=== PATIENT | female | born 1945 | race Hispanic/Latino ===

== ENCOUNTER 2016-11-01 08:29 | Day surgery (SDC) | payer BC ==
[2016-10-23 11:55] VITALS: BMI 30.4
[2016-11-01] MEDS ORDERED: Flumazenil 0.1 mg/ml Inj (5ml) IVP ONE (11:57)
[2016-11-01] MEDS ORDERED: Midazolam 2 MG/2 ML VIAL ONE (11:57)
[2016-11-01] MEDS ORDERED: Naloxone 0.4 mg/ml Inj (Adult) ONE (11:57)
--- NOTE | 2016-11-02 19:01 | CARD ---
APPROVED REPORT EXAM: Transesophageal echocardiogram with color flow Doppler. INDICATION Aortic Valve Disease 2D DIMENSIONS LVOT Diameter1.7 (1.8-2.4cm) M-Mode DIMENSIONS Aortic Cusp Exc.0.70 (1.5-2.0cm) Aortic Valve AoV Peak Rdlyllxk071.0cm/sAoV VTI67.9cmAO Peak GR.51mmHg LVOT Peak Fbhgvcbf58.4cm/sLVOT VTI16.80cmAO Mean GR.29mmHg MONICA (VMAX)0.17it5SFM (VTI)0.56cm2 Mitral Valve E/A ratio0.0 TDI E/Lateral E'0.0E/Medial E'0.0 Tricuspid Valve TR Peak Pmxucyix730lw/sRAP [id number] Peak Gr.48mmHg [id number] Reason For Test : To assess /MR/TR PROCEDURE After obtaining informed consent, patient underwent transesophageal echo in the Echo Lab. Type of Sedation : Conscious Sedation Sedation was administered by Dr. young. Sedation was achieved with Versed and , Fentanyl 2mg and 100 mcg intravenously. Transesophageal probe was inserted and advanced into esophagus without difficulty. Echo enhancement indication: R/O Septal defect. Echo enhancement agent administered: Agitated Saline The MIKAL was performed without complications. Throughout the procedure, the blood pressure, pulse oximetry, cardiac rhythm, and rate were monitored. The patient tolerated the procedure without adverse effects. Recovery from conscious sedation was uneventful and vital signs were stable. LEFT VENTRICLE The left ventricle is normal size. There is mild concentric left ventricular hypertrophy. The left ventricular function is normal.Ef-60-65% There is normal LV segmental wall motion. A fib No left ventricle thrombus noted on this study. There is no ventricular septal defect visualized. There is no left ventricular aneurysm. There is no mass noted in the left ventricle. RIGHT VENTRICLE The right ventricle is mildly to moderately dilated. There is normal right ventricular wall thickness. Systolic function is mildly to moderately reduced. ATRIA The left atrium is moderately dilated. The right atrium is moderately dilated. The interatrial septum is intact with no evidence for an atrial septal defect, by color flw and Bubble study AORTIC VALVE The aortic valve is calcified and displays decreased opening. There is mild to moderate aortic regurgitation. There is severe valvular aortic stenosis. MONICA 0.6 by continuty equation and 0.7 cm2 by planimetry. There is no aortic valvular vegetation. MITRAL VALVE Mitral annular calcification is mild to moderate. The mitral valve leaflets are thickened. There is no mitral valve stenosis. Mitral regurgitation is moderate to severe. TRICUSPID VALVE The tricuspid valve leaflets display thickening. There is moderate to severe tricuspid regurgitation.RVSP-58 mmof hg. There is no tricuspid valve prolapse or vegetation. PULMONIC VALVE The pulmonary valve is normal in structure. There is mild pulmonic valvular regurgitation. There is no pulmonic valvular stenosis. GREAT VESSELS The aortic root is normal in size. The ascending aorta is normal in size. The pulmonary artery is normal. The IVC is normal in size and collapses >50% with inspiration. PERICARDIAL EFFUSION There is no pericardial effusion. There is no pleural effusion. <Conclusion> The left ventricle is normal size. The left ventricular function is normal.Ef-60-65% There is mild to moderate aortic regurgitation. The aortic valve is calcified and displays decreased opening. There is severe valvular aortic stenosis. MONICA 0.6 by continuty equation and 0.7 cm2 by planimetry. Mitral regurgitation is moderate to severe. There is moderate to severe tricuspid regurgitation.RVSP-58 mmof Hg Mild to moderate flat plaque in descending aorta noted. velocity in AILYN less than 0.2 m/s. Recommendation: If symptomatic consider TAVR eval Left and right heart cath VS Close F/u and repeat echo in 6 months to one year if Asymptomatic. Cc; dr. Bose.
== END 2016-11-01 14:40 | disposition home or self-care (01) ==
LOC: TEE 08:29 → EDSTATUS 10:00 → TEE 14:40
PROVIDERS: ATTEND Internal Medicine Cardiovascular Disease
DX: I08.3 Combined rheumatic disorders of mitral, aortic and tricuspid valves (principal); I10 Essential (primary) hypertension; I25.10 Atherosclerotic heart disease of native coronary artery without angina pectoris; I50.9 Heart failure, unspecified; I49.9 Cardiac arrhythmia, unspecified; Z88.8 Allergy status to other drugs, medicaments and biological substances; Z88.0 Allergy status to penicillin
CPT/HCPCS: 93312; J2250; J3010

== ENCOUNTER 2017-01-24 13:42 | Emergency (ER) | payer BC ==
[2017-01-24 13:42] VITALS: BMI 31.9
[2017-01-24 14:10] VITALS: TEMP 97.4
[2017-01-24] MEDS ORDERED: Potassium Chloride 40 mEq/30 ml LIQ UD PO STA (14:46)
[2017-01-24] MEDS ORDERED: Ciprofloxacin 400mg/200ml D5W 400 MG/200 ML BAG IVPB STA (14:47)
[2017-01-24] MEDS ORDERED: Vancomycin 1gm in NS 250ml 1 GM/250 ML BAG IVPB STA (14:47)
--- NOTE | 2017-01-24 14:49 | ED PDOC ---
Arrival/HPI - General Chief Complaint: Lower Extremity Problem/Injury Time Seen by Provider: 01/24/17 14:11 Historian: Patient - History of Present Illness Narrative History of Present Illness (Text): 01/24/17 14:48 A 71 year old female presents to the emergency department with 2 week duration left lower extremity swelling and redness. She states that she was advised to come in by [facility] two days ago for the swelling. The patient denies fevers , chills, headache, dizziness, nausea, vomiting, diarrhea. on antibiotics, finished course started 2 weeks ago, not improving 01/24/17 17:11 Time/Duration: 1 week Symptom Onset: Sudden Symptom Course: Unchanged Activities at Onset: Rest, Light Context: Home Past Medical History - Provider Review Nursing Documentation Reviewed: Yes - Infectious Disease Hx of Infectious Diseases: None - Tetanus Immunization Tetanus Immunization: Unknown - Reproductive Menopause: Yes - Cardiac Hx Atrial Fibrillation: Yes Hx Hypertension: Yes Other/Comment: aortic stenosis - Pulmonary Hx Respiratory Disorders: No - Neurological Hx Paralysis: No - HEENT Hx HEENT Disorder: No (GLASSES) - Renal Hx Renal Disorder: No - Endocrine/Metabolic Hx Endocrine Disorders: No - Hematological/Oncological Hx Blood Transfusions: Yes (2013) Hx Blood Transfusion Reaction: No - Integumentary Hx Dermatological Disorder: No - Musculoskeletal/Rheumatological Hx Musculoskeletal Disorders: Yes (OSTEOARTHRITIS) - Gastrointestinal Hx Gastrointestinal Disorders: Yes Hx Gall Bladder Disease: Yes (CHOLECYSTECTOMY) - Genitourinary/Gynecological Hx Genitourinary Disorders: No - Psychiatric Hx Anxiety: Yes Hx Depression: No Hx Emotional Abuse: No Hx Physical Abuse: No Hx Substance Use: No - Past Surgical History Past Surgical History: Non-Contributing - Surgical History Other/Comment: abd hernia - Anesthesia Hx Anesthesia Reactions: No Hx Malignant Hyperthermia: No - Suicidal Assessment Feels Threatened In Home Enviroment: No Family/Social History - Physician Review Nursing Documentation Reviewed: Yes Family/Social History: No Known Family HX Smoking Status: Never Smoked Hx Alcohol Use: No Hx Substance Use: No Hx Substance Use Treatment: No Allergies/Home Meds Allergies/Adverse Reactions: Allergies gabapentin Allergy (Severe, Verified 01/24/17 14:10) RASH Penicillins Allergy (Severe, Verified 01/24/17 14:10) RASH Home Medications: Home Meds Medication Instructions Recorded Confirmed Alprazolam [Xanax] 0.25 mg PO BID PRN 10/21/13 01/24/17 Metoprolol Succinate 25 mg PO BID 04/22/14 01/24/17 Atorvastatin [Lipitor] 10 mg PO DIN 10/23/16 01/24/17 Docusate [Colace] 100 mg PO DAILY 10/23/16 01/24/17 Furosemide [Lasix] 40 mg PO DAILY 10/23/16 01/24/17 Omeprazole Magnesium [Prilosec Otc] 20 mg PO DAILY 10/23/16 01/24/17 Potassium Chloride [Klor-Con M20] 20 meq PO BID 10/23/16 01/24/17 diltiaZEM CD [Cardizem CD] 180 mg PO DAILY 10/23/16 01/24/17 Review of Systems - Physician Review All systems were reviewed & negative as marked: Yes - Review of Systems Constitutional: absent: Fevers, Night Sweats Respiratory: absent: SOB Cardiovascular: absent: Chest Pain Gastrointestinal: absent: Abdominal Pain, Diarrhea, Nausea Musculoskeletal: Other (Lower extremity swelling and erythema) Neurological: absent: Headache, Dizziness Physical Exam Vital Signs Reviewed: Yes Vital Signs Temp Pulse Resp BP Pulse Ox 01/24/17 15:42 75 17 150/80 98 01/24/17 14:06 97.4 F L 77 18 151/82 H 99 Temperature: Hypothermic Blood Pressure: Hypertensive Pulse: Regular Respiratory Rate: Normal Appearance: Positive for: Well-Appearing, Non-Toxic, Comfortable Pain Distress: None Mental Status: Positive for: Alert and Oriented X 3 - Systems Exam Head: Present: Atraumatic, Normocephalic Pupils: Present: PERRL Extroacular Muscles: Present: EOMI Conjunctiva: Present: Normal Mouth: Present: Moist Mucous Membranes Neck: Present: Normal Range of Motion Respiratory/Chest: Present: Clear to Auscultation, Good Air Exchange. No: Respiratory Distress, Accessory Muscle Use Cardiovascular: Present: Regular Rate and Rhythm, Normal S1, S2. No: Murmurs Abdomen: Present: Normal Bowel Sounds. No: Tenderness, Distention, Peritoneal Signs Back: Present: Normal Inspection Upper Extremity: Present: Normal Inspection, Swelling (left lower leg swelling) , Erythema (Left lower leg erythema), Other (Warmth lower left leg). No: Cyanosis, Edema Lower Extremity: Present: Normal Inspection. No: Edema Neurological: Present: GCS=15, CN II-XII Intact, Speech Normal Skin: Present: Warm, Dry, Normal Color. No: Rashes Psychiatric: Present: Alert, Oriented x 3, Normal Insight, Normal Concentration Medical Decision Making ED Course and Treatment: 01/24/17 15:07 Impression: A 71 year old female with 2 week duration left lower leg swelling and erythema. Differential Diagnosis included but are not limited to: cellulits ro dvt. failure of outpt Plan: -- Left Lower Extremity Vein US -- Ciprofloxacin and Vancomycin -- Labs -- Reassess and disposition Progress Notes: 01/24/17 16:39 Leaving Against Medical Advice (AMA): The patient is choosing to leave against medical advice. I have personally explained to the patient that choosing to do so may result in permanent bodily harm or . I have discussed at great length that without further evaluation and monitoring there may be unforeseen circumstances and/or deterioration causing permanent bodily harm or as a result of their choice. The patient is alert, oriented, and shows the mental capacity to make clear decisions regarding the patients health care at this time. The patient continues to wish to leave against medical advice. The patient has been advised that they should return to the emergency room immediately if they change their mind at any time, or if their condition begins to change or worsen in any way. 01/24/17 17:10 pt encouraged to be admitted as failure of outpt worsening over 2 weeks. pt refuses. understands risks signs out - Lab Interpretations Lab Results: 01/24/17 15:10 01/24/17 15:10 Lab Results 01/24/17 15:10: Sodium 141, Potassium 4.8, Chloride 99, Carbon Dioxide 28, Anion Gap 19, BUN 17, Creatinine 1.1, Est GFR ( Amer) 59, Est GFR (Non- Af Amer) 49, Random Glucose 94, Calcium 9.5, Total Bilirubin 1.0, AST 47 H, ALT 45, Alkaline Phosphatase 135 H, Total Protein 8.7 H, Albumin 4.9 H, Globulin 3.8 , Albumin/Globulin Ratio 1.3 01/24/17 15:10: PT 17.4 H, INR 1.61 H, APTT 32.9 H 01/24/17 15:10: WBC 7.7, RBC 5.13, Hgb 14.5, Hct 43.3, MCV 84.4, MCH 28.3, MCHC 33.5, RDW 13.6, Plt Count 245, MPV 10.0, Gran % 68.3 H, Lymph % (Auto) 21.7 L, Brewster % (Auto) 6.1 H, Eos % (Auto) 3.4, Baso % (Auto) 0.5, Gran # 5.26, Lymph # 1.7, Brewster # 0.5, Eos # 0.3, Baso # 0.04 I have reviewed the lab results: Yes - RAD Interpretation Radiology Orders: 01/24/17 14:45 DUPLEX LOWER EXTRM VEIN LEFT [US] Stat - Medication Orders Current Medication Orders: Discontinued Medications Ciprofloxacin (Cipro 400mg/200ml Dsw) 400 mg in 200 mls @ 133.3 mls/hr IVPB STAT STA PRN Reason: Protocol Stop: 01/24/17 16:17 Last Admin: 01/24/17 17:03 Dose: 133.3 mls/hr Vancomycin HCl (Vancomycin 1gm) 1 gm in 250 mls @ 167 mls/hr IVPB STAT STA PRN Reason: Protocol Stop: 01/24/17 16:16 Last Admin: 01/24/17 15:21 Dose: 167 mls/hr - Scribe Statement The provider has reviewed the documentation as recorded by the Eliot Bonilla Provider Scribe Attestation: All medical record entries made by the Scribe were at my direction and personally dictated by me. I have reviewed the chart and agree that the record accurately reflects my personal performance of the history, physical exam, medical decision making, and the department course for this patient. I have also personally directed, reviewed, and agree with the discharge instructions and disposition. Disposition/Present on Arrival - Present on Arrival Any Indicators Present on Arrival: No History of DVT/PE: No History of Uncontrolled Diabetes: No Urinary Catheter: No History of Decub. Ulcer: No History Surgical Site Infection Following: None - Disposition Have Diagnosis and Disposition been Completed?: Yes Diagnosis: Cellulitis Disposition: AGAINST MEDICAL ADVICE Disposition Time: 03:00 Patient Problems: Current Active Problems Problem Status Onset Cellulitis Acute Condition: UNKNOWN Discharge Instructions (ExitCare): Cellulitis (ED) Additional Instructions: you are refusing admission to the hospital. return to er with worsening symptoms or concerns. Prescriptions: Sulfamethoxazole/Trimethoprim [Bactrim DS 800 mg-160 mg] 1 tab PO BID #20 tab Forms: [employer] ([place])
[2017-01-24 15:27] LABS: BASO # 0.04 K/mm3 (0.0-2.0); BASO % 0.5 % (0.0-3.0); EOS # 0.3 (0.0-0.7); EOS % 3.4 % (1.5-5.0); GRAN # 5.26 (1.4-6.5); GRAN % 68.3 % (50.0-68.0); HEMOGLOBIN 14.5 g/dL (12.0-16.0); LYMPH # 1.7 (1.2-3.4); LYMPH % 21.7 % (22.0-35.0); MEAN CELL VOLUME 84.4 fl (80.0-105.0); MEAN CORPUSCULAR HEMOGLOBIN 28.3 pg (25.0-35.0); MEAN CORPUSCULAR HGB CONC 33.5 g/dl (31.0-37.0); MONO # 0.5 (0.1-0.6); MONO % 6.1 % (1.0-6.0); PLATELET COUNT 245 10^3/uL (120.0-450.0); RBC 5.13 10^6/uL (3.5-6.1); RED CELL DISTRIBUTION WIDTH 13.6 % (11.5-14.5); WHITE BLOOD COUNT 7.7 10^3/ul (4.5-11.0)
[2017-01-24 15:37] LABS: ALB/GLOB RATIO 1.3 (1.1-1.8); ALBUMIN 4.9 g/dL (3.0-4.8); CALCIUM 9.5 mg/dL (8.4-10.5)
[2017-01-24 15:39] LABS: INR 1.61 (0.93-1.08); PARTIAL THROMBOPLASTIN TIME 32.9 Seconds (23.7-30.8); PROTHROMBIN TIME 17.4 Seconds (9.9-11.8)
[2017-01-24 15:58] VITALS: RESP 17
[2017-01-24 17:11] VITALS: O2SAT 99
[2017-01-24 18:37] VITALS: BP 145/76; PULSE 72
--- NOTE | 2017-01-24 19:53 | US ---
PROCEDURE: Left lower extremity venous US HISTORY: Leg pain and swelling. Evaluate for DVT. PHYSICIAN(S): Emil Chacon MD. TECHNIQUE: Duplex sonography and color-flow Doppler with graded compression were used to evaluate the deep venous system of the left lower extremity. The exam is limited by edema. FINDINGS: The visualized deep venous system of the left lower extremity is sonographically normal and compressible. Normal wave forms and augmentation are seen. There is no sonographic evidence for deep venous thrombosis in the visualized segments of the left lower extremity. IMPRESSION: 1. No sonographic evidence for deep venous thrombosis in the visualized segments of the left lower extremity.
== END 2017-01-24 18:36 | disposition left against medical advice (07) ==
LOC: ED 13:42
DX: L03.116 Cellulitis of left lower limb (principal); I48.91 Unspecified atrial fibrillation; I10 Essential (primary) hypertension; Z88.0 Allergy status to penicillin
CPT/HCPCS: 80053; 85025; 85610; 85730; 93971; 96365; 96366; 99285; J0744